=== PATIENT | female | born 1955 | race Caucasian/White ===

== ENCOUNTER 2023-07-02 06:30 | Day surgery (SDC) | payer MEDICARE, BC ==
[~2023-07-02 06:30] MED LIST: Sodium Chloride 0.9% 10 ML Syringe FLUSH PRN; Sodium Chloride 0.9% 10 ML Syringe FLUSH SCH
[2023-07-02] MEDS: Lactated Ringers 1,000 ML IV SCH (06:45)
[2023-07-02] MEDS ORDERED: HYDROmorphone 0.5 MG/0.5 ML Syringe IVPUSH PRN (07:16)
[2023-07-02] MEDS ORDERED: fentaNYL 100 MCG/2 ML SDV IVPUSH PRN (07:16)
[2023-07-02] MEDS ORDERED: Ondansetron 4 MG/2 ML SDV IVPUSH PRN (07:16)
[2023-07-02] MEDS ORDERED: Phenylephrine 1% 10 MG/ML SDV ONE (07:21)
[2023-07-02] MEDS ORDERED: Propofol 200 MG/20 ML SDV ONE (07:21)
[2023-07-02] MEDS ORDERED: Sodium Chloride 0.9% 100 ML ONE (07:22)
[2023-07-02] MEDS ORDERED: Midazolam 1 MG/ML 2 ML SDV ONE (07:22)
[2023-07-02] MEDS ORDERED: Ondansetron 4 MG/2 ML SDV ONE (07:27)
[2023-07-02] MEDS ORDERED: Dexamethasone 4 MG/ML 5 ML MDV ONE (07:27)
[2023-07-02] MEDS: oxyCODONE ER 10 MG TAB.ER PO SCH (07:56)
[2023-07-02] MEDS: Acetaminophen 325 MG Tab PO SCH (07:56)
[2023-07-02] MEDS: Pregabalin 25 MG Cap PO SCH (07:56)
[2023-07-02] MEDS ORDERED: ceFAZolin 2 GM Vial ONE (09:00)
[2023-07-02] MEDS ORDERED: Lactated Ringers 1,000 ML IV ONE (10:00)
[2023-07-02] MEDS: Morphine 8 MG, EPINEPHrine 0.3 MG, Cefuroxime 750 MG, Ketorolac 30 MG, Sodium Chloride ... PRN (10:13)
[2023-07-02] MEDS: Vancomycin 1 GM SDV ONE (10:16)
[2023-07-02] MEDS: Tranexamic Acid 1,000 MG/10 ML Vial ONE (10:16)
[2023-07-02] MEDS: Acetaminophen/HYDROcodone 325-5 MG Tab PO PRN ×2 (11:16→15:19)
== END 2023-07-02 15:40 | disposition home or self-care (01) ==
LOC: JD.SDS 06:30
PROVIDERS: ATTEND Orthopaedic Surgery
DX: M16.11 Unilateral primary osteoarthritis, right hip (principal); I10 Essential (primary) hypertension; E11.65 Type 2 diabetes mellitus with hyperglycemia; E03.9 Hypothyroidism, unspecified; Z79.890 Hormone replacement therapy; Z79.84 Long term (current) use of oral hypoglycemic drugs; Z79.899 Other long term (current) drug therapy
CPT/HCPCS: 0055T; 27130; 36415; 73501; 86850; 86900; 86901; 97110; 97161; A9270; C1713; C1776; J0171; J0690; J0697; J1100; J1596; J1885; J2250; J2270; J2371; J2405; J2704; J3370; J3490; J7030; J7120; 01214